=== PATIENT | female | born 1995 | race African-American/Black ===

== ENCOUNTER 2016-05-30 13:17 | Emergency (ER) | payer SELFPAY ==
[~2016-05-30 13:17] MED LIST: CIPR500T94 PO
[2016-05-30 13:20] VITALS: BP 129/81
--- NOTE | 2016-05-30 14:50 | PHYS DOC ---
General Chief Complaint: ABNORMAL LABS Stated Complaint: REQ TEST Time Seen by MD: 13:25 Source: patient Exam Limitations: no limitations Problems: History of Present Illness Initial Comments Pt is 21/F to ED requesting test. Pt is G0, LMP "last month." Denies any symptoms, states she took home test which she reports +. Wants "doctor test" to submit for benefits. Smoker, no vitamins or OB/PCP. Timing/Duration: unsure Severity: mild Modifying Factors: improves with other Associated Symptoms: denies symptoms Allergies: Coded Allergies: latex (Verified Allergy, Intermediate, Rash, 11/01/13) nickel (Verified Allergy, Intermediate, Rash, 11/01/13) Uncoded Allergies: a blood pressure med that starts with D (Allergy, Intermediate, 11/01/13) Past Medical History Medical History: no pertinent history Surgical History: noncontributory Social History Smoker: cigarettes Alcohol: occasionally Drugs: none Review of Systems EENTM: no symptoms reported Respiratory: no symptoms reported Cardiovascular: no symptoms reported Gastrointestinal: no symptoms reported Genitourinary: no symptoms reported Musculoskeletal: no symptoms reported Physical Exam General Appearance: WD/WN, no apparent distress Ear, Nose, Throat: hearing grossly normal, normal ENT inspection Neck: non-tender, supple Respiratory: normal breath sounds, no respiratory distress Cardiovascular: normal peripheral pulses, regular rate, rhythm Gastrointestinal: non tender, soft Back: no CVA tenderness, no vertebral tenderness Extremities: non-tender, normal inspection, no pedal edema 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 Follow up with your doctor as needed. Return to ED with new or changing symptoms. JOSE ENRIQUE CVOINGTON DO May 30, 2016 14:50
== END 2016-05-30 14:55 | disposition home or self-care (01) ==
LOC: ER 13:17
DX: Z32.02 Encounter for pregnancy test, result negative (principal); F17.210 Nicotine dependence, cigarettes, uncomplicated; Z88.8 Allergy status to other drugs, medicaments and biological substances; Z91.040 Latex allergy status
CPT/HCPCS: 81025; 84703; 99282

== ENCOUNTER 2016-06-14 16:59 | Emergency (ER) | payer SELFPAY ==
[~2016-06-14] VITALS: Ht 162.6 cm; Wt 72.6 kg
[2016-06-14 16:59] VITALS: BP 134/79
--- NOTE | 2016-06-14 17:10 | PHYS DOC ---
General Chief Complaint: ALLERGIC REACTION Stated Complaint: Allergic Reaction Time Seen by MD: 17:08 Source: patient, EMS Exam Limitations: no limitations Problems: History of Present Illness Initial Comments Pt is 21/F to ED via EMS for allergic reaction. Unknown exposure, did not eat nuts. Developed rash red/itchy at chest/back/ arms no facial/throat swelling/cough/sob. EMS gave 50mg benadryl IM, rash improving on ED arrival. Timing/Duration: 1/2 hour Severity: mild Modifying Factors: worse with eating, improves with medication Associated Symptoms: rash Allergies: Coded Allergies: latex (Verified Allergy, Intermediate, Rash, 11/01/13) nickel (Verified Allergy, Intermediate, Rash, 11/01/13) Uncoded Allergies: a blood pressure med that starts with D (Allergy, Intermediate, 11/01/13) Past Medical History Medical History: no pertinent history Surgical History: noncontributory Social History Smoker: non-smoker Alcohol: none Drugs: none Review of Systems Constitutional: denies chills, denies fever, denies malaise EENTM: denies eye pain, denies ear pain, denies nose congestion, denies throat pain, denies throat swelling, denies mouth swelling Respiratory: denies cough, denies shortness of breath, denies wheezing Cardiovascular: denies chest pain, denies palpitations, denies syncope Gastrointestinal: denies diarrhea, denies nausea, denies vomiting Musculoskeletal: denies back pain, denies joint swelling, denies neck pain Skin: see HPI Psychiatric/Neurological: denies headache, denies numbness, denies paresthesia Physical Exam General Appearance: WD/WN, no apparent distress Eyes: bilateral eye EOMI, bilateral eye PERRL, bilateral eye normal inspection Ear, Nose, Throat: hearing grossly normal, normal ENT inspection, normal pharynx Neck: non-tender, supple Respiratory: normal breath sounds, no respiratory distress Cardiovascular: normal peripheral pulses, regular rate, rhythm Back: no CVA tenderness, no vertebral tenderness Extremities: non-tender, normal inspection 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 Stable for d/c Departure Time of Disposition: 17:35 Disposition: 01 HOME, SELF-CARE Diagnosis: allergic reaction nos Condition: IMPROVED Patient Instructions: Allergy Tests Additional Instructions: Rest, no strenuous activity. OTC benadryl and pepcid while taking prednisone. Rx: prednisone Follow up with your doctor this week Return to ED with new or changing symptoms. JOSE ENRIQUE OCVINGTON DO Jun 14, 2016 17:10
[2016-06-14] MEDS ORDERED: FAMOTIDINE 20 MG TABLET PO ONE (17:30)
[2016-06-14] MEDS ORDERED: methylPREDNISolone SOD SUCC PF 125 MG/2 ML VIAL. IM ONE (17:30)
[2016-06-14] MEDS ORDERED: PRED20TA PO (17:37)
== END 2016-06-14 18:15 | disposition home or self-care (01) ==
LOC: ER 16:59
DX: T78.49XA Other allergy, initial encounter (principal); Z91.040 Latex allergy status; Z88.8 Allergy status to other drugs, medicaments and biological substances; X58.XXXA Exposure to other specified factors, initial encounter
CPT/HCPCS: 96372; 99283; J2930

== ENCOUNTER 2017-12-22 11:31 | Emergency (ER) | payer SELFPAY ==
[~2017-12-22] VITALS: Ht 162.6 cm; Wt 59.9 kg
[~2017-12-22 11:31] MED LIST changes: +PRED20TA PO
--- NOTE | 2017-12-22 11:59 | PHYS DOC ---
Past History Past Medical History: No Pertinent History Past Surgical History: No Surgical History Smoking: Cigarettes Alcohol Use: Occasionally Drug Use: None Adult General Chief Complaint Chief Complaint: PAIN ON URINATION HPI HPI Patient is a 22-year-old female who presents to the emergency department for evaluation. She states that for the past week or 2, she has had some generalized lower abdominal discomfort. She admits to some thin whitish vaginal discharge. She has had some pressure with urination but no burning or urinary frequency. She states she just found out last night that she was . She states that she had been on Depo-Provera in the past, but not for a while, and she often has irregular periods. Her last menstrual cycle was at the end of September. She has not had any vomiting, but has had some nausea intermittently and some breast soreness. She has not had any fevers or chills, dizziness, or lightheadedness. There are no alleviating, or exacerbating factors to her symptoms otherwise. Review of Systems Review of Systems Constitutional: Denies fever or chills [] Eyes: Denies change in visual acuity, redness, or eye pain [] HENT: Denies nasal congestion or sore throat [] Respiratory: Denies cough or shortness of breath [] Cardiovascular: The patient denies any shortness of breath, chest pain, palpitations, or orthopnea. Denies dizziness. [] GI: Denies vomiting, bloody stools or diarrhea [] : Denies urinary frequency or hematuria [] Musculoskeletal: Denies back pain or joint pain [] Integument: Denies rash or skin lesions [] Neurologic: Denies headache, focal weakness or sensory changes [] Endocrine: Denies polyuria or polydipsia [] All other systems were reviewed and found to be within normal limits, except as documented in this note. Allergies Allergies Allergies Coded Allergies Type Severity Reaction Last Updated Verified latex Allergy Intermediate Rash 11/01/13 Yes nickel Allergy Intermediate Rash 11/01/13 Yes Uncoded Allergies Type Severity Reaction Last Updated Verified a blood pressure med that starts with D Allergy Intermediate 11/01/13 Physical Exam Physical Exam PHYSICAL EXAM: CONSTITUTIONAL: Well developed, well nourished HEAD: normocephalic, atraumatic EENT: PERRL, EOMI. Conjunctivae normal color, sclerae non-icteric; moist mucous membranes. NECK: Supple, non-tender; no meningismus. LUNGS: Lungs CTA, breathing even and unlabored. Normal air movement. HEART: Regular rate and rhythm, no murmur CHEST: No deformity; non-tender ABDOMEN: The abdomen is soft, there is mild diffuse tenderness to palpation to the lower abdomen without focal tenderness, rebound, or guarding. The remainder of the abdomen is relatively soft and non-tender, no masses or bruits. EXTREM: Normal ROM; no deformity, no calf tenderness. Normal pulses palpable in all extremities. There is no pedal edema. SKIN: No rash; no diaphoresis NEURO: Alert; normal speech and cognition; CN's grossly intact; strength grossly intact without focal deficit. BACK: No CVA TTP. PELVIC EXAM: Normal external genitalia. There is a moderate amount of thin, somewhat frothy vaginal discharge present. The cervix otherwise appears normal. There is no significant cervical motion tenderness. The uterus is slightly enlarged, and mildly tender. There is no adnexal mass or tenderness to palpation. Exam was performed in the presence of the patient's nurse, Eduarda. Current Patient Data Lab Results Laboratory Tests Test 12/22/17 11:50 12/22/17 11:51 12/22/17 12:00 Urine Collection Type Unknown Urine Color Shruthi Urine Clarity Cloudy Urine pH 6.0 Urine Specific [place] 1.020 Urine Protein Neg Urine Glucose (UA) Neg mg/dL Urine Ketones (Stick) Neg mg/dL Urine Blood Neg Urine Nitrite Neg Urine Bilirubin Neg Urine Urobilinogen Dipstick 0.2 mg/dL Urine Leukocyte Esterase Trace Urine RBC 1-2 /HPF Urine WBC 5-10 /HPF Urine Squamous Epithelial Cells Many /LPF Urine Bacteria Mod /HPF Urine Mucus Marked /LPF Bedside Urine HCG, Qualitative hcg positive White Blood Count 4.4 x10^3/uL Red Blood Count 3.88 x10^6/uL Hemoglobin 12.5 g/dL Hematocrit 36.4 % Mean Corpuscular Volume 94 fL Mean Corpuscular Hemoglobin 32 pg Mean Corpuscular Hemoglobin Concent 34 g/dL Red Cell Distribution Width 12.6 % Platelet Count 209 x10^3/uL Neutrophils (%) (Auto) 55 % Lymphocytes (%) (Auto) 33 % Monocytes (%) (Auto) 10 % Eosinophils (%) (Auto) 2 % Basophils (%) (Auto) 0 % Neutrophils # (Auto) 2.4 x10^3uL Lymphocytes # (Auto) 1.5 x10^3/uL Monocytes # (Auto) 0.4 x10^3/uL Eosinophils # (Auto) 0.1 x10^3/uL Basophils # (Auto) 0.0 x10^3/uL Maternal Serum HCG Beta Subunit 905 mIU/mL Sodium Level 139 mmol/L Potassium Level 4.0 mmol/L Chloride Level 104 mmol/L Carbon Dioxide Level 26 mmol/L Anion Gap 9 Blood Urea Nitrogen 6 mg/dL Creatinine 1.0 mg/dL Estimated GFR (Cockcroft-Gault) 83.9 BUN/Creatinine Ratio 6 Glucose Level 94 mg/dL Calcium Level 8.6 mg/dL Total Bilirubin 0.3 mg/dL Aspartate Amino Transf (AST/SGOT) 9 U/L Alanine Aminotransferase (ALT/SGPT) 19 U/L Alkaline Phosphatase 47 U/L Total Protein 7.1 g/dL Albumin 3.6 g/dL Albumin/Globulin Ratio 1.0 WET PREP Final YEAST NONE SEEN TRICHOMONAS NONE SEEN CLUE CELLS CLUE CELLS PRESENT WBCS OCCASIONAL RBCS NO RBCS SEEN SQUAMOUS EPS MODERATE EKG EKG [] Radiology/Procedures Radiology/Procedures [PROCEDURE: OB <14 WKS W/TV OB <14 WKS W/TV History: Pelvic pain, Comparison: None. Findings: Multiple transabdominal sonographic images of the pelvis are submitted. Endometrium is somewhat thickened about 1.2 cm. Uterus measured 8 x 3.7 x 4.9 cm. Left ovary measured 2.3 x 2.8 x 4.1 cm with normal low resistance vascularity. Right ovary measured 2.4 x 1.9 x 2.9 cm with normal low resistance vascularity. No free fluid is demonstrated Transvaginal ultrasound: Multiple transvaginal sonographic images of pelvis are submitted. There is a small focus of of hypoechogenicity in the endometrial cavity about 0.3 cm. If this represents a gestational sac, mean dimension of 0.29 cm corresponds with 5 weeks 0 days. Adjusted ultrasound age is 5 weeks 0 days with estimated delivery date of 08/24/2018. LMP age is 11 weeks 1 day with estimated delivery date of 07/12/2018. There is no identifiable pole, cardiac activity, or yolk sac at this time. Uterus measures 8.3 x 3.3 x 4.4 cm. Left ovary measures 2.6 x 3 x 3.6 cm, normal color flow and low resistance vascularity. There is focus of different echogenicity of the left ovary with internal echoes up to 1.6 x 2.2 x 1.7 cm. Right ovary measures 2.9 x 1.9 x 2.2 cm with normal low resistance vascularity. Impression: 1. There is a small focus of hypoechogenicity of the endometrial cavity which may be a small gestational sac, adjusted ultrasound age of 5 weeks 0 days with estimated delivery date of 08/24/2018 if this is indeed a gestational sac. pole and cardiac activity are not seen at this time. 2. Focus of echogenicity of the left ovary may be a hemorrhagic or corpus luteal cyst.] Course & Med Decision Making Course & Med Decision Making Pertinent Labs and Imaging studies reviewed. (See chart for details) [1:45 PM: The patient's condition remains stable at this time. Discussed test results with the patient, the need for close [facility]O[employer] DEVELOPER follow-up for repeat beta hCG levels in 48-72 hours, and return precautions for signs or symptoms of ectopic in detail. The patient be given Flagyl for BV.] Dragon Disclaimer Dragon Disclaimer This electronic medical record was generated, in whole or in part, using a voice recognition dictation system. Departure Departure: Impression: Primary Impression: Abdominal pain affecting Additional Impression: Bacterial vaginosis Disposition: 01 HOME, SELF-CARE Condition: STABLE Referrals: PCP,NO (PCP) Patient Instructions: Abdominal Pain During , Bacterial Vaginosis Additional Instructions: Follow-up with Dr. Lock, HADOOP DEVELOPER. Call [phone], to schedule appointment to be seen in the next 48-72 hours, for repeat blood testing and possible repeat sonography. Return to medical care, for any new, or worsening symptoms, department of dizziness, lightheadedness, increasing abdominal pain, nausea, vomiting, or any other new, or concerning symptoms. Scripts Pnv Cmb#95/Ferrous Fumarate/Fa ( TABLET) 1 Each Tablet 1 TAB PO DAILY, #90 TAB 3 Refills Prov: CHUNG JEAN MD 12/22/17 Metronidazole (FLAGYL) 500 Mg Tablet 1 TAB PO BID, #14 TAB Prov: CHUNG JEAN MD 12/22/17 Problem Qualifiers CHUNG JEAN MD Dec 22, 2017 11:59
[2017-12-22 12:20] LABS: BILIRUBIN,URINE NEG (NEG); CLARITY,URINE CLOUDY; COLOR,URINE AMBER; GLUCOSE,URINE NEG (NEG); NITRITE,URINE NEG (NEG); UROBILINOGEN,URINE 0.2 mg/dL (0.2 mg/dL)
[2017-12-22 12:21] LABS: BACTERIA,URINE MOD /HPF (0-FEW); SQUAMOUS EPITHELIAL CELL,UR MANY /LPF
[2017-12-22 12:40] LABS: BASO % 0 % (0-3); EOS # 0.1 x10^3/uL (0.0-0.7); EOS % 2 % (0-3); HEMATOCRIT 36.4 % (36.0-47.0); HEMOGLOBIN 12.5 g/dL (12.0-15.5); LYMPH # 1.5 x10^3/uL (1.0-4.8); LYMPH % 33 % (24-48); MEAN CORPUSCULAR HEMOGLOBIN 32 pg (25-35); MEAN CORPUSCULAR HGB CONC 34 g/dL (31-37); MEAN CORPUSCULAR VOLUME 94 fL (79-100); MONO # 0.4 x10^3/uL (0.0-1.1); MONO % 10 % (0-9); NEUT # 2.4 x10^3uL (1.8-7.7); NEUT % 55 % (31-73); PLATELET COUNT 209 x10^3/uL (140-400); RED BLOOD COUNT 3.88 x10^6/uL (3.50-5.40); RED CELL DISTRIBUTION WIDTH 12.6 % (11.5-14.5); WHITE BLOOD COUNT 4.4 x10^3/uL (4.0-11.0)
[2017-12-22 12:47] LABS: ALBUMIN 3.6 g/dL (3.4-5.0); CALCIUM 8.6 mg/dL (8.5-10.1); GFR 83.9; TOTAL BILIRUBIN 0.3 mg/dL (0.2-1.0); TOTAL PROTEIN 7.1 g/dL (6.4-8.2)
--- NOTE | 2017-12-22 13:21 | RAD ---
OB <14 WKS W/TV History: Pelvic pain, Comparison: None. Findings: Multiple transabdominal sonographic images of the pelvis are submitted. Endometrium is somewhat thickened about 1.2 cm. Uterus measured 8 x 3.7 x 4.9 cm. Left ovary measured 2.3 x 2.8 x 4.1 cm with normal low resistance vascularity. Right ovary measured 2.4 x 1.9 x 2.9 cm with normal low resistance vascularity. No free fluid is demonstrated Transvaginal ultrasound: Multiple transvaginal sonographic images of pelvis are submitted. There is a small focus of of hypoechogenicity in the endometrial cavity about 0.3 cm. If this represents a gestational sac, mean dimension of 0.29 cm corresponds with 5 weeks 0 days. Adjusted ultrasound age is 5 weeks 0 days with estimated delivery date of 08/24/2018. LMP age is 11 weeks 1 day with estimated delivery date of 07/12/2018. There is no identifiable pole, cardiac activity, or yolk sac at this time. Uterus measures 8.3 x 3.3 x 4.4 cm. Left ovary measures 2.6 x 3 x 3.6 cm, normal color flow and low resistance vascularity. There is focus of different echogenicity of the left ovary with internal echoes up to 1.6 x 2.2 x 1.7 cm. Right ovary measures 2.9 x 1.9 x 2.2 cm with normal low resistance vascularity. Impression: 1. There is a small focus of hypoechogenicity of the endometrial cavity which may be a small gestational sac, adjusted ultrasound age of 5 weeks 0 days with estimated delivery date of 08/24/2018 if this is indeed a gestational sac. pole and cardiac activity are not seen at this time. 2. Focus of echogenicity of the left ovary may be a hemorrhagic or corpus luteal cyst. Electronically signed by: Juan Mendoza MD (12/22/2017 1:18 PM) [email or web address]
[2017-12-22] MEDS ORDERED: METR500T PO (13:44)
[2017-12-22] MEDS ORDERED: PNV1TABL25 PO (13:44)
[2017-12-22 13:46] VITALS: BP 137/74
[2017-12-23 15:08] LABS: CHLAMYDIA PROBE Negative (Negative)
== END 2017-12-22 13:54 | disposition home or self-care (01) ==
LOC: ER 11:31
DX: O23.591 Infection of other part of genital tract in pregnancy, first trimester (principal); N76.0 Acute vaginitis; R10.84 Generalized abdominal pain; B96.89 Other specified bacterial agents as the cause of diseases classified elsewhere; Z3A.01 Less than 8 weeks gestation of pregnancy; O99.331 Smoking (tobacco) complicating pregnancy, first trimester; Z91.040 Latex allergy status; Z88.8 Allergy status to other drugs, medicaments and biological substances
CPT/HCPCS: 36415; 76801; 76817; 80053; 81001; 81025; 84702; 85025; 86900; 86901; 87086; 87491; 87591; 99285; Q0111